=== PATIENT | female | born 1970 | race Caucasian/White ===

== ENCOUNTER 2020-02-05 21:25 | Emergency (ER) | payer SELFPAY ==
[~2020-02-05] VITALS: Ht 154.9 cm; Wt 72.0 kg
[~2020-02-05 21:25] MED LIST: CEPH-569 PO; VIC PO; XANAX
[2020-02-05 23:05] VITALS: BP 128/71
== END 2020-02-05 23:07 | disposition home or self-care (01) ==
LOC: ER 21:25
DX: U07.1 COVID-19 (principal); R06.02 Shortness of breath; Z98.890 Other specified postprocedural states; Z88.0 Allergy status to penicillin
CPT/HCPCS: 71045; 93005; 99283

== ENCOUNTER 2020-12-12 11:24 | Emergency (ER) | payer MEDICAID, OTHER ==
[~2020-12-12] VITALS: Ht 165.1 cm; Wt 75.0 kg
[2020-12-12 14:00] VITALS: BP 115/65
[2020-12-12] MEDS ORDERED: IBUP-2029 PO (14:03)
== END 2020-12-12 14:13 | disposition home or self-care (01) ==
LOC: ER 11:24
DX: S60.012A Contusion of left thumb without damage to nail, initial encounter (principal); M25.532 Pain in left wrist; M79.645 Pain in left finger(s); W51.XXXA Accidental striking against or bumped into by another person, initial encounter; Y93.89 Activity, other specified; Y92.89 Other specified places as the place of occurrence of the external cause; Y99.8 Other external cause status; F41.9 Anxiety disorder, unspecified; Z98.890 Other specified postprocedural states; Z88.0 Allergy status to penicillin
CPT/HCPCS: 73110; 73140; 99284